=== PATIENT | male | born 1960 | race Caucasian/White ===

== ENCOUNTER 2019-03-02 17:46 | Inpatient (IN) | payer OTHER ==
[~2019-03-02] VITALS: Ht 167.6 cm; Wt 72.4 kg
[2019-03-02] MEDS ORDERED: ONDANSETRON 4 MG INJ IV STA (18:28)
[2019-03-02] MEDS ORDERED: morphine 4 MG/ML VIAL IV STA (18:28)
[2019-03-02] MEDS ORDERED: ASPIRIN 81 MG TAB PO ONE (18:30)
[2019-03-02] MEDS ORDERED: NITROGLYCERIN (SL) 0.4 MG TAB SL ONE (18:30)
--- NOTE | 2019-03-02 18:37 | ERD ---
ER Documentation Chief Complaint Chief Complaint CP w/ arm pain since last night, hx of WV. mild n/v, no SOB HPI This is a 59-year-old man with a history of CAD and WV status post PTCA with 5 stents and 5 balloon interventions presenting with pressure-like chest discomfort, nausea, mild shortness of breath since last night. Episodes have been intermittent and patient states they last between 30 minutes to 60 minutes. Patient denies loss of consciousness or dizziness, no fevers or chills, no cough, no calf or leg swelling. He did use aspirin and nitroglycerin prior to arrival ROS All systems reviewed and are negative except as per history of present illness. PMhx/Soc Hypertension, CAD status post [place] and PTCA x5 with 5 previous stents as well as previous balloon angioplasty FmHx Family History: No diabetes Physical Exam Vitals Vital Signs Date Temp Pulse Resp B/P (MAP) Pulse Ox O2 O2 Flow FiO2 Time Delivery Rate 03/02/19 97.0 91 16 227/133 99 17:48 (164) Physical Exam GENERAL: Well-developed, well-nourished, well-hydrated, in no apparent distress, looks nontoxic in appearance HEENT: Moist mucous membranes, pink conjunctiva, no cervical spine tenderness or step-off deformities, no goiter, no jaundice or icterus, extraocular movements intact without pain. No submandibular induration, and no pharyngeal erythema NEURO: Alert and oriented 3, cranial nerves II through XII intact bilaterally, pupils equal round reactive to light, no focal deficits or facial asymmetry, se nsation intact distally Strength 5/5 in upper and lower extremities bilaterally CARDIAC: Regular rate and rhythm, no murmurs rubs or gallops LUNGS: Clear bilaterally no wheezing crackles or stridor ABDOMEN: Soft nontender, no guarding, no rigidity, no rebound, no psoas sign no obturator sign. Normoactive bowel sounds SKIN: Warm and dry to touch, no abrasions, contusions, or hematomas, no lacerations, no ecchymosis, no target lesions, and without ulcers EXTREMITIES: No clubbing cyanosis or edema, calves are bilaterally symmetrical, no Homans sign, no popliteal cord sign. Distal pulses equal and bilateral PSYCH: Normal affect without agitation or irritability Result Diagram: 03/02/19185003/02/191850 Results 24 hrs Laboratory Tests Test 03/02/19 18:51 03/02/19 19:30 White Blood Count 5.4 10^3/ul Red Blood Count 4.65 10^6/ul Hemoglobin 14.0 g/dl Hematocrit 40.7 % Mean Corpuscular Volume 87.5 fl Mean Corpuscular Hemoglobin 30.1 pg Mean Corpuscular Hemoglobin Concent 34.4 g/dl Red Cell Distribution Width 12.5 % Platelet Count 236 10^3/UL Mean Platelet Volume 10.6 fl Immature Granulocytes % 0.200 % Neutrophils % 63.8 % Lymphocytes % 26.9 % Monocytes % 7.6 % Eosinophils % 0.6 % Basophils % 0.9 % Nucleated Red Blood Cells % 0.0 /100WBC Immature Granulocytes # 0.010 10^3/ul Neutrophils # 3.4 10^3/ul Lymphocytes # 1.4 10^3/ul Monocytes # 0.4 10^3/ul Eosinophils # 0.0 10^3/ul Basophils # 0.1 10^3/ul Nucleated Red Blood Cells # 0.0 10^3/ul Sodium Level 136 mmol/L Potassium Level 4.3 mmol/L Chloride Level 101 mmol/L Carbon Dioxide Level 24 mmol/L Anion Gap 11 Blood Urea Nitrogen 11 mg/dl Creatinine 0.57 mg/dl Est Glomerular Filtrat Rate mL/min > 60 mL/min Glucose Level 416 mg/dl Calcium Level 8.8 mg/dl Total Bilirubin 0.6 mg/dl Direct Bilirubin 0.00 mg/dl Indirect Bilirubin 0.6 mg/dl Aspartate Amino Transf (AST/SGOT) 18 IU/L Alanine Aminotransferase (ALT/SGPT) 23 IU/L Alkaline Phosphatase 117 IU/L Troponin I < 0.012 ng/ml Total Protein 7.7 g/dl Albumin 4.1 g/dl Globulin 3.60 g/dl Albumin/Globulin Ratio 1.13 Lipase 105 U/L Bedside Glucose 341 mg/dL Current Medications Medications Dose Sig/Silvio Start Time Status Last (Trade) Ordered Route PRN Stop Time Admin Dose Reason Admin Aspirin 162 mg ONCE ONCE 03/02/19 DC 03/02/19 (Aspirin) PO 18:30 03/02/19 19:02 18:31 2 tab ONCE ONCE 03/02/19 DC 03/02/19 Nitroglycerin SL 18:30 03/02/19 19:02 18:31 (Nitroglyceri n (Sl Tab) 0.4 Mg) Morphine 4 mg ONCE STAT 03/02/19 DC 03/02/19 Sulfate IV 18:28 03/02/19 19:02 (morphine) 18:30 Ondansetron 4 mg ONCE STAT 03/02/19 DC 03/02/19 HCl (Zofran IV 18:28 03/02/19 19:02 Inj) 18:30 Insulin 12 unit ONCE ONCE 03/02/19 DC 03/02/19 Human SC 19:30 03/02/19 19:37 Lispro 19:31 (Humalog) Diagnostic 1 ea 2 HRS AFTER 03/02/19 DC 03/02/19 Test (Pha) HUMALOG ONCE 19:30 03/02/19 19:30 (Accu-Chek) XX 19:31 Procedures/MDM IV line was established patient was placed on chronic manager rhythm strip revealed a sinus rhythm at about 70 bpm with upright P and T waves. Patient was afebrile EKG performed, read by me revealed a normal sinus rhythm at 68 bpm, normal axis, narrow QRS complex, inferolateral T wave inversions, no ST elevations or depressions noted Chest X-ray 1V Interpreted by me: Soft Tissue: No acute abnormalities Bones: No acute abnormalities Mediastinum/Cardiac Silhouette/Lungs: No acute abnormalities I administered aspirin 162 mg p.o. x1, nitroglycerin 0.4 mg sublingual x2, morphine 4 mg IV CBC was normal, electrolytes revealed hyperglycemia, liver function test normal, troponin negative. I administered lispro insulin 12 units subcutaneous injection x1 Patient's hypertension did improve with above therapy. Patient admitted to telemetry setting for continued medical management and cardiology consultation Departure Diagnosis: Primary Impression: Chest pain Chest pain type: chest pain due to myocardial ischemia Ischemic chest pain type: unstable angina pectoris Qualified Codes: I20.0 - Unstable angina Additional Impressions: Acute hyperglycemia Hypertensive emergency Condition: MIGUELITO Collins MD Mar 02, 2019 18:36
[2019-03-02] MEDS ORDERED: INSULIN LISPRO 100 UNIT/ML VIAL SC ONE (19:30)
[2019-03-02] MEDS ORDERED: ACCU-CHEK XX ONE (19:30)
[2019-03-02 22:25] VITALS: BP 126/85; PULSE 58; RESP 18
[2019-03-02 22:50] VITALS: Ht 167.6 cm; Wt 72.4 kg
--- NOTE | 2019-03-02 23:51 | HP ---
Date/Time of Note Date/Time of Note DATE: 03/02/19 TIME: 23:51 Assessment/Plan VTE Prophylaxis Pharmacological prophylaxis: LMWH Lines/Catheters IV Catheter Type (from Nrsg): Saline Lock Assessment/Plan Assessment/Plan 1. Chest pain: Rule out ACS -Patient with a history of cardiac stents x5 (last 2016). Patient with poor follow-up because of insurance reason. -EKG with T wave inversion. First troponin negative -Serial troponin -2D echo and cardiology consult -Supplemental oxygen, aspirin, statin. As needed nitro. No beta-fariha given heart rate on the lower side 2. Hypertensive urgency: BP better controlled. Adjust meds as needed -Patient has been going to [place] to get his medications and as a result has not been taking his medication regularly 3. Type 2 diabetes: Check A1c. ISS 4. History of dyslipidemia: Check fasting lipid panel in a.m. 5. History of scalp skin cancer: Status post removal 3 years ago 6. " Gastric valve problem" and associated obstruction: Currently no acute issue -Patient reported being hospitalized multiple times and being treated with NG tube decompression -Patient just got approved for medical and so he needs to follow-up closely with PCP Result Diagram: 03/02/19 1851 03/02/19 1851 Results 24hrs Laboratory Tests Test 03/02/19 18:51 03/02/19 19:30 03/02/19 21:45 White Blood Count 5.4 Red Blood Count 4.65 L Hemoglobin 14.0 Hematocrit 40.7 L Mean Corpuscular Volume 87.5 Mean Corpuscular Hemoglobin 30.1 Mean Corpuscular Hemoglobin Concent 34.4 Red Cell Distribution Width 12.5 Platelet Count 236 Mean Platelet Volume 10.6 H Immature Granulocytes % 0.200 Neutrophils % 63.8 Lymphocytes % 26.9 Monocytes % 7.6 Eosinophils % 0.6 Basophils % 0.9 Nucleated Red Blood Cells % 0.0 Immature Granulocytes # 0.010 Neutrophils # 3.4 Lymphocytes # 1.4 Monocytes # 0.4 Eosinophils # 0.0 Basophils # 0.1 Nucleated Red Blood Cells # 0.0 Sodium Level 136 Potassium Level 4.3 Chloride Level 101 Carbon Dioxide Level 24 Anion Gap 11 Blood Urea Nitrogen 11 Creatinine 0.57 L Est Glomerular Filtrat Rate mL/min > 60 Glucose Level 416 *H Calcium Level 8.8 Total Bilirubin 0.6 Direct Bilirubin 0.00 Indirect Bilirubin 0.6 Aspartate Amino Transf (AST/SGOT) 18 Alanine Aminotransferase (ALT/SGPT) 23 Alkaline Phosphatase 117 Troponin I < 0.012 Total Protein 7.7 Albumin 4.1 Globulin 3.60 H Albumin/Globulin Ratio 1.13 Lipase 105 Bedside Glucose 341 H 151 HPI/ROS Admit Date/Time Admit Date/Time Mar 02, 2019 at 19:44 Hx of Present Illness Patient is a 59-year-old male with a history of CAD status post stent x5, type 2 diabetes, dyslipidemia, " gastric valve problem" with recurrent obstruction, skin cancer of the scalp status post removal. Patient presented to ER complaining of chest pain. Chest pain is left-sided, described as squeezing type with radiation to his left arm. This particular chest pain initially started 2 months ago, worsening over the past 2 days. It is worse with exertion and associated with shortness of breath, nausea and diaphoresis. Patient had last cardiac stent in 2016. 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 He just got approved for medical. He has been going to [place] to get his medications and at times he had not been taking his medications when he runs out. He used to smoke 2 packs/day, but quit in 1994. When he presented to the ER, blood pressure was 227/133. First troponin is negative and EKG shows T wave inversion. Chest x-ray clear. PMH/Family/Social Past Medical History Medical History: other (See HPI) Coded Allergies: No Known Allergy (Unverified , 03/03/19) Past Surgical History Past Surgical Hx: other (See HPI) Family History Significant Family History: no pertinent family hx Social History Alcohol Use: none Smoking Status: Former smoker Drug Use: none Exam/Review of Systems Vital Signs Vitals Vital Signs Date Temp Pulse Resp B/P (MAP) Pulse Ox O2 O2 Flow FiO2 Time Delivery Rate 03/02/19 98.4 58 18 126/85 98 22:25 (99) 03/02/19 Room Air 21:21 CHRISTIANO OSEI MD Mar 02, 2019 23:51
[2019-03-03] VITALS (7 sets, daily range): BP systolic 131–170; BP diastolic 76–98; PULSE 50–61; RESP 16–20
[2019-03-03] MEDS ORDERED: NACL 0.9% 3 ML SYG IV SCH
[2019-03-03] MEDS ORDERED: ONDANSETRON 4 MG INJ IV PRN
[2019-03-03] MEDS ORDERED: ALBUTEROL/IPRATROPIUM (NEB) 3 ML AMP HHN PRN
[2019-03-03] MEDS ORDERED: NITROGLYCERIN (SL) 0.4 MG TAB SL PRN
[2019-03-03] MEDS ORDERED: GLUCOSE GEL 15 GRAM TUBE PO PRN ×2 (00:30)
[2019-03-03] MEDS ORDERED: GLUCAGON 1 MG INJ IM PRN (00:30)
[2019-03-03] MEDS ORDERED: DEXTROSE 50% 50 ML SYRINGE IV PRN ×2 (00:30)
[2019-03-03] MEDS ORDERED: GLUCOSE GEL 15 GRAM TUBE BUCCAL PRN (00:30)
[2019-03-03] MEDS: ACCU-CHEK XX SCH (02:24)
[2019-03-03] MEDS ORDERED: traMADol 50 MG TAB PO PRN (04:30)
[2019-03-03] MEDS: INSULIN ASPART [NOVOLOG] 3 ML PEN SC SCH ×4 (07:59→21:18)
[2019-03-03] MEDS: INSULIN GLARGINE [LANTus] (100 UNITS/ML) SYG SC SCH (08:00)
[2019-03-03] MEDS: ASPIRIN 81 MG TAB PO SCH (08:10)
[2019-03-03] MEDS: ENOXAPARIN 40 MG/0.4 ML SYG SC SCH (08:14)
--- NOTE | 2019-03-03 15:14 | RADRPT ---
Echocardiogram Report Patient Name: KOURTNEY BONDPatient ID: [id number] : 1960 (59y 1m)Study Date: 03/03/2019 8:45:23 AM Gender: Bijancession #: [id number] Tech: Guzman Gonzalez [facility] Location: [facility]- Ref.Physician: CHRISTIANO OSEI Height(Cm): BSA: Weight(Kg): Quality: AdequateOrder Physician: CHRISTIANO OSEI Account #: Procedures: Echocardiographic Report: Transthoracic echocardiogram with complete 2D, M-Mode, and doppler examination. Indications: Chest Pain. Measurements: 2D/M Mode Doppler Measurement Value Normal Range Measurement Value Normal Range LVIDd 2D 5.0 [ 4.2 - 5.8 ] cm AV Peak Enrrique 1.7 [ 100.0 - 170.0 ] cm/sec LVIDs 2D 3.8 [ 2.5 - 4.0 ] cm AV Peak PG 11.0 [ 2.0 - 9.0 ] mmHg LVPWd 2D 1.1 [ 0.6 - 1.0 ] cm LVOT Peak Enrrique 0.9 [ 70.0 - 110.0 ] cm/sec IVSd 2D 1.5 [ 0.6 - 1.0 ] cm LVOT Peak PG 3.0 [ 2.0 - 6.0 ] mmHg AoR Diam 2D 2.8 [ 2.6 - 3.4 ] cm MV E Peak Enrrique 0.7 [ 60.0 - 130.0 ] cm/sec EDV 2D 119.0 [ 62.0 - 150.0 ] ml MV A Peak Enrrique 0.7 [ 100.0 - 120.0 ] cm/sec ESV 2D 60.0 [ 21.0 - 61.0 ] ml MV E/A 1.0 [ 0.8 - 1.5 ] ratio EF 2D 49.6 [ 52.0 - 72.0 ] percent MV Decel Time 183 [ 104 - 258 ] msec LA Dimen 2D 3.8 [ 3.0 - 4.0 ] cm Lat E` Enrrique 0.1 [ 10.0 - 15.0 ] cm/sec Lateral E/E` 9.2 [ 1.0 - 2.0 ] ratio Med E` Enrrique 0.1 cm/sec MV E/A 1.0 [ 0.8 - 1.5 ] ratio TR Peak Enrrique 2.3 [ 100.0 - 280.0 ] cm/sec TR Peak PG 22.0 mmHg RVSP 25.0 [ 10.0 - 36.0 ] mmHg Findings: Left Ventricle: Normal left ventricular systolic function. Normal left ventricular cavity size. Moderate asymmetric septal hypertrophy. Ejection fraction is visually estimated at 55 %. Tissue Doppler/Mitral Doppler indices are consistent with impaired relaxation (Stage I diastolic dysfunction). Right Ventricle: Normal right ventricular size. Normal right ventricular systolic function. Left Atrium: The left atrium is normal in size. Right Atrium: The right atrium is normal in size. Mitral Valve: Mild mitral leaflet calcification. Mild mitral annular calcification. Trace mitral regurgitation. Aortic Valve: No significant aortic stenosis or insufficiency. Aortic cusps appear mildly calcified. Tricuspid Valve: Normal appearance of the tricuspid valve. The estimated Peak RVSP is 25 mmHg. There is trace tricuspid regurgitation. Pericardium: Normal pericardium with no significant pericardial effusion. Aorta: Normal aortic root. IVC: Normal size and normal respiratory collapse consistent with normal right atrial pressure. Conclusions: Normal left ventricular systolic function. Normal left ventricular cavity size. Moderate asymmetric septal hypertrophy. Ejection fraction is visually estimated at 55 %. Tissue Doppler/Mitral Doppler indices are consistent with impaired relaxation (Stage I diastolic dysfunction). Mild mitral leaflet calcification. Mild mitral annular calcification. Trace mitral regurgitation. Normal appearance of the tricuspid valve. The estimated Peak RVSP is 25 mmHg. There is trace tricuspid regurgitation. Electronically Signed By: Dilan Rodriguez 2019-03-03 15:13:21 PDT
--- NOTE | 2019-03-03 17:49 | CONS ---
DATE OF ADMISSION: 03/02/2019 DATE OF CONSULTATION: 03/03/2019 REASON FOR CONSULTATION: Chest pain, assess for acute coronary syndrome. REQUESTING PHYSICIAN: Dr. Ortiz from the hospitalist service. HISTORY OF PRESENT ILLNESS: Mr. Lake is a 59-year-old male with coronary artery disease, status p ost multiple prior stent placements, most recently 2016, with a total of 5 stents for patient's hyper tension, diabetes mellitus, dyslipidemia, remote tobacco, quit in 1994, who presented with substernal chest pain which has been recurrently ongoing for the last 2 months and for 3 days ago is his most r ecent episode and was continuous throughout the day. The patient states pain is worse with exertiona l activities, but describes the pain as a burning sensation. Upon arrival, temperature 97, blood pre ssure markedly elevated at 220/133, pulse 91, respiratory rate 16, satting 98%. The patient's labs r evealed a white count 5.4, hemoglobin 14.0, platelet count of 236, sodium of 136, potassium 4.3, crea tinine of 0.5, BUN 11, glucose of 416. Troponin negative. The patient's chest x-ray revealed no rad iographic evidence of acute cardiopulmonary abnormalities. The patient's electrocardiogram is not in chart for my review at this time. The patient had one in the ER, but is not in the chart. The cassie ent this time denies ongoing chest pain. PAST MEDICAL HISTORY: As above in HPI. MEDICATIONS CURRENTLY IN HOSPITAL: 1. Aspirin 81 mg daily. 2. Lovenox subQ daily. 3. Hydralazine 10 mg p.o. q. 8. 4. Meclizine p.r.n. 5. Zofran p.r.n. 6. DuoNeb p.r.n. ALLERGIES: NO KNOWN DRUG ALLERGIES. SOCIAL HISTORY: No current tobacco, social ETOH, no illicit drug use. Quit smoking in 1994. FAMILY HISTORY: No history of sudden cardiac or early CAD. REVIEW OF SYSTEMS: As above in HPI. CONSTITUTIONAL: No current fevers, chills. PULMONARY: No current shortness of breath. CARDIOVASCULAR: No chest pain. GASTROINTESTINAL: No vomiting. GENITOURINARY: No hematuria. MUSCULOSKELETAL: Degenerative joint disease. PSYCHIATRIC: No documented psych history. NEUROLOGIC: No documented history of CVA. ENDOCRINE: Diabetes mellitus. PHYSICAL EXAMINATION: VITAL SIGNS: Temperature 98.3, blood pressure 170/90, pulse 67, respiratory rate 18, satting 96%. GENERAL: The patient is alert, awake, complaining of intermittent chest pain. NECK: JVP approximately 8 to 9 cm of water. CHEST: Fair air movement throughout. HEART: Bradycardic, regular rhythm, normal S1, S2, I/ systolic murmur, nondisplaced PMI. ABDOMEN: Positive bowel sounds, soft. EXTREMITIES: No edema, 1+ pulses bilateral posterior tibial. LABORATORY DATA: Most recently from today, sodium 138, potassium 4.0, creatinine 0.6, BUN 12, glucos e of 234, LDL of 134, HDL 28. White blood count 8.4, hemoglobin 28, platelet count 220. IMAGING STUDIES: As above in HPI. No further imaging studies for my review at this time. ECG: As above in HPI. No further electrocardiograms for my review at this time. IMPRESSION: 1. Chest pain concerning for some angina, assess for acute coronary syndrome. 2. History of percutaneous transluminal coronary angioplasty and stent placement, most recently 2017 . 3. Hypertension, uncontrolled. 4. Dyslipidemia. 5. Diabetes mellitus. 6. Bradycardia, by tele with episodes of sinus bradycardia to the 39. RECOMMENDATIONS: 1. At this time, we would maintain the patient on telemetry monitoring to follow rhythm and rate con trol closely. 2. We would continue the patient's aspirin for prophylaxis against cardiovascular events and we will complete the patient to rule out for myocardial infarction to ensure the patient's chest pain was no t indicative of acute coronary syndrome such as acute myocardial infarction but will increase the pat ient's hydralazine to improve overall systolic blood pressure control and will start patient on oral nitrates for symptomatology and follow symptoms closely. 3. Check a 2D echo for this patient's ejection fraction, wall motion or any major valve abnormalitie s. 4. Follow the patient's blood sugars closely, adjust insulin therapy as necessary. 5. Check EKG now, repeat EKG in morning. EKG for any complaints of chest pain or change in rhythm, and if the patient does rule out for myocardial infarction. We will place the patient in for a cardi ac stress test to further assess possibility of significant obstructive coronary artery leading to sy mptoms of chest pain and subsequent admit to the hospital. Thank you for allowing me to take part in the care of this patient. I will continue to follow very c losely with you with recommendations to be made as the patient progresses through his inpatient hospi dejuan clinical course. Dictated By: MENG CHINCHILLA/LLIY Conf#: [id number] DID#: [id number] CC: CHAN ORTIZ; CHRISTIANO OSEI MD;*EndCC*
--- NOTE | 2019-03-03 19:35 | PN ---
Date/Time of Note Date/Time of Note DATE: 03/03/19 TIME: 19:26 Assessment/Plan VTE Prophylaxis Risk score (from Ns)>0 risk: 3 SCD applied (from Ns): Yes SCD contraindicated: low risk/ambulating Pharmacological prophylaxis: LMWH Lines/Catheters IV Catheter Type (from Nrs): Saline Lock Assessment/Plan Hospital Course Hospitalist coverage Assessment and plan 1. Chest pain rule out ACS. Stress test tomorrow. 2. Chronic cad/stents, 3. Nonadherence, restart medical therapy 4. Chronic hypertension 5. Chronic dyslipidemia not at goal 6. Type 2 diabetes A1c 9, not at goal 7. Past remote tobacco 8. Metabolic syndrome 9. Skin cancer 10. Recurrent bowel obstructions, follow-up with primary S: events noted.cp w min exercise. O: vss sr sb PE no pallor/ jvd reg s1s2; no mrg ctab nt bs + nt nd no r r g no edema/ Homans Result Diagram: 03/03/19 0508 03/03/19 0508 Results 24hrs Laboratory Tests Test 03/02/19 19:30 03/02/19 21:45 03/03/19 02:21 03/03/19 05:08 Bedside Glucose 341 H 151 197 White Blood Count 8.4 # Red Blood Count 4.51 L Hemoglobin 13.8 L Hematocrit 39.4 L Mean Corpuscular Volume 87.4 Mean Corpuscular 30.6 Hemoglobin Mean Corpuscular 35.0 Hemoglobin Concent Red Cell Distribution 12.7 Width Platelet Count 220 Mean Platelet Volume 11.0 H Immature Granulocytes % 0.400 Neutrophils % 72.5 Lymphocytes % 21.5 Monocytes % 4.7 Eosinophils % 0.4 Basophils % 0.5 Nucleated Red Blood 0.0 Cells % Immature Granulocytes # 0.030 Neutrophils # 6.1 Lymphocytes # 1.8 Monocytes # 0.4 Eosinophils # 0.0 Basophils # 0.0 Nucleated Red Blood 0.0 Cells # Sodium Level 138 Potassium Level 4.0 Chloride Level 100 Carbon Dioxide Level 27 Anion Gap 11 Blood Urea Nitrogen 12 Creatinine 0.60 L Est Glomerular Filtrat > 60 Rate mL/min Glucose Level 240 #H Hemoglobin A1c 10.0 H Calcium Level 9.1 Magnesium Level 1.8 Total Bilirubin 0.6 Direct Bilirubin 0.00 Indirect Bilirubin 0.6 Aspartate Amino 21 Transf (AST/SGOT) Alanine 24 Aminotransferase (ALT/SG PT) Alkaline Phosphatase 94 Total Protein 6.8 Albumin 3.6 Globulin 3.20 Albumin/Globulin Ratio 1.12 Triglycerides Level 221 H Cholesterol Level 206 H LDL Cholesterol, 134 Calculated HDL Cholesterol 28 L Cholesterol/HDL Ratio 7.3 Thyroid Stimulating 0.890 Hormone (TSH) Test 03/03/19 07:54 03/03/19 11:45 03/03/19 17:35 Bedside Glucose 233 H 234 H 158 Exam/Review of Systems Exam Vitals Vital Signs Date Temp Pulse Resp B/P (MAP) Pulse Ox O2 O2 Flow FiO2 Time Delivery Rate 03/03/19 98.0 58 16 166/93 99 15:35 (117) 03/02/19 Room Air 21:21 Intake and Output 03/02/19 03/02/19 03/03/19 1515:00 23:00 07:00 IntakeIntake Total 1000 ml BalanceBalance 1000 ml Results Results 24hrs Laboratory Tests Test 03/02/19 19:30 03/02/19 21:45 03/03/19 02:21 03/03/19 05:08 Bedside Glucose 341 H 151 197 White Blood Count 8.4 # Red Blood Count 4.51 L Hemoglobin 13.8 L Hematocrit 39.4 L Mean Corpuscular Volume 87.4 Mean Corpuscular 30.6 Hemoglobin Mean Corpuscular 35.0 Hemoglobin Concent Red Cell Distribution 12.7 Width Platelet Count 220 Mean Platelet Volume 11.0 H Immature Granulocytes % 0.400 Neutrophils % 72.5 Lymphocytes % 21.5 Monocytes % 4.7 Eosinophils % 0.4 Basophils % 0.5 Nucleated Red Blood 0.0 Cells % Immature Granulocytes # 0.030 Neutrophils # 6.1 Lymphocytes # 1.8 Monocytes # 0.4 Eosinophils # 0.0 Basophils # 0.0 Nucleated Red Blood 0.0 Cells # Sodium Level 138 Potassium Level 4.0 Chloride Level 100 Carbon Dioxide Level 27 Anion Gap 11 Blood Urea Nitrogen 12 Creatinine 0.60 L Est Glomerular Filtrat > 60 Rate mL/min Glucose Level 240 #H Hemoglobin A1c 10.0 H Calcium Level 9.1 Magnesium Level 1.8 Total Bilirubin 0.6 Direct Bilirubin 0.00 Indirect Bilirubin 0.6 Aspartate Amino 21 Transf (AST/SGOT) Alanine 24 Aminotransferase (ALT/SG PT) Alkaline Phosphatase 94 Total Protein 6.8 Albumin 3.6 Globulin 3.20 Albumin/Globulin Ratio 1.12 Triglycerides Level 221 H Cholesterol Level 206 H LDL Cholesterol, 134 Calculated HDL Cholesterol 28 L Cholesterol/HDL Ratio 7.3 Thyroid Stimulating 0.890 Hormone (TSH) Test 03/03/19 07:54 03/03/19 11:45 03/03/19 17:35 Bedside Glucose 233 H 234 H 158 Medications Medication Current Medications IV Flush (NS 3 ml) 3 ml PER PROTOCOL IV ; Start 03/03/19 at 00:00 Ondansetron HCl (Zofran Inj) 4 mg Q6H PRN IV NAUSEA/VOMITING; Start 03/03/19 at 00:00 Aspirin (Aspirin) 81 mg DAILY PO Last administered on 03/03/19at 08:10; Admin Dose 81 MG; Start 03/03/19 at 09:00 Nitroglycerin (Nitroglycerin (Sl Tab) 0.4 Mg) 1 tab Q5M PRN SL .CHEST PAIN; Start 03/03/19 at 00:00 Acetaminophen (Tylenol Tab) 650 mg Q6H PRN PO .PAIN 1-3 OR TEMP; Start 03/03/19 at 00:00 Enoxaparin Sodium (Lovenox) 40 mg DAILY SC Last administered on 03/03/19at 08:14; Admin Dose 40 MG; Start 03/03/19 at 09:00 Albuterol/ Ipratropium (Duoneb) 3 ml Q2H RESP THERAPY PRN HHN SHORTNESS OF BREATH; Start 03/03/19 at 00:00 Diagnostic Test (Pha) (Accu-Chek) 1 ea 02 XX Last administered on 03/03/19at 02:24; Admin Dose 1 EA; Start 03/03/19 at 02:00 Insulin Glargine (Lantus) 14 units DAILY@0800 SC Last administered on 03/03/19at 08:00; Admin Dose 14 UNITS; Start 03/03/19 at 08:00 Insulin Aspart (Novolog Insulin Pen) NOVOLOG *MODERATE* ALGORITHM WITH MEALS BEDTIME SC Last administered on 03/03/19at 17:44; Admin Dose 2 UNIT; Start 03/03/19 at 08:00 Miscellaneous Information 1 ea NOTE XX ; Start 03/03/19 at 00:30 Glucose (Glutose) 15 gm Q15M PRN PO DECREASED GLUCOSE; Start 03/03/19 at 00:30 Glucose (Glutose) 22.5 gm Q15M PRN PO DECREASED GLUCOSE; Start 03/03/19 at 00:30 Dextrose (D50w Syringe) 25 ml Q15M PRN IV DECREASED GLUCOSE; Start 03/03/19 at 00:30 Dextrose (D50w Syringe) 50 ml Q15M PRN IV DECREASED GLUCOSE; Start 03/03/19 at 00:30 Glucagon (Glucagen) 1 mg Q15M PRN IM DECREASED GLUCOSE; Start 03/03/19 at 00:30 Glucose (Glutose) 15 gm Q15M PRN BUCCAL DECREASED GLUCOSE; Start 03/03/19 at 0 0:30 Tramadol HCl (Ultram) 50 mg Q6H PRN PO MODERATE PAIN LEVEL 4-6 Last administered on 03/03/19at 04:18; Admin Dose 50 MG; Start 03/03/19 at 04:30; Stop 03/04/19 at 04:29 Hydralazine HCl (Apresoline) 25 mg Q8 PO Last administered on 03/03/19at 14:27; Admin Dose 25 MG; Start 03/03/19 at 14:00 Isosorbide Dinitrate (Isordil) 20 mg TID PO ; Start 03/03/19 at 21:00 DARNELL MOREL MD Mar 03, 2019 19:35
[2019-03-03] MEDS: ISOSORBIDE DINITRATE 20 MG TAB PO SCH (21:13)
[2019-03-04] VITALS (10 sets, daily range): BP systolic 109–150; BP diastolic 70–89; PULSE 43–69; RESP 16–20
[2019-03-04] MEDS: ACCU-CHEK XX SCH (02:05)
[2019-03-04] MEDS: ASPIRIN 81 MG TAB PO SCH (07:48)
[2019-03-04] MEDS: ISOSORBIDE DINITRATE 20 MG TAB PO SCH ×3 (07:49→21:07)
[2019-03-04] MEDS: ACETAMINOPHEN 325 MG TAB PO PRN (07:49)
[2019-03-04] MEDS: ENOXAPARIN 40 MG/0.4 ML SYG SC SCH (08:08)
[2019-03-04] MEDS: INSULIN GLARGINE [LANTus] (100 UNITS/ML) SYG SC SCH (08:14)
[2019-03-04] MEDS: INSULIN ASPART [NOVOLOG] 3 ML PEN SC SCH ×4 (08:22→21:12)
--- NOTE | 2019-03-04 13:16 | PDOCDIS ---
Discharge Instructions CONDITION [id number] Patient Condition: [id number] Stable HOME CARE INSTRUCTIONS: [id number] Diet Instructions: [id number] Low Fat /Cholesterol ACTIVITY: [id number] Activity Restrictions: [id number] Slowly Increase Activity Avoid heavy lifting FOLLOW UP/APPOINTMENTS Follow-up Plan appt primary 1wk Dr Rodriguez 2wks DARNELL MOREL MD Mar 04, 2019 13:16
[2019-03-04] MEDS ORDERED: NITR0.4T32 SL (13:22)
[2019-03-04] MEDS ORDERED: ACET325T33 PO (13:22)
[2019-03-04] MEDS ORDERED: Insulin Glargine SC (13:22)
[2019-03-04] MEDS ORDERED: NOVO3I SC (13:22)
[2019-03-04] MEDS ORDERED: ISOS20TA19 PO (13:22)
[2019-03-04] MEDS ORDERED: ASPI-831 PO (13:22)
[2019-03-04] MEDS ORDERED: ATOR20TA38 PO (13:22)
[2019-03-04] MEDS ORDERED: HYDR-3671 PO (13:22)
[2019-03-04] MEDS ORDERED: REGADENOSON 0.4 MG/5 ML SYG ONE (13:26)
--- NOTE | 2019-03-04 14:33 | DS ---
Date/Time of Note Date/Time of Note DATE: 03/04/19 TIME: 14:31 Discharge Summary Admission/Discharge Info Admit Date/Time Mar 02, 2019 at 19:44 Discharge Date/Time Patient Condition: Stable Consults Jennifer/ [facility] Procedures CXR IMPRESSION: No radiographic evidence of an acute cardiopulmonary process. Exercise stress test Hx of Present Illness Admitted with chest pain. Nonadherence to medical therapy Hospital Course Hospitalist coverageHospital course -Evaluated/ managed for chest pain. Patient unfortunately has not been regular with medical therapy. Seen by cardiology. Trop's and cxr are negative. Patient for stress test later today. If negative, patient may be discharged home to follow-up with primary and cardiology. Medications refilled. Assessment and plan 1. Chest pain ruled out ACS. Stress test day, and if normal DC home. 2. Chronic cad/stents, 3. Nonadherence, restart medical therapy 4. Chronic hypertension 5. Chronic dyslipidemia not at goal 6. Type 2 diabetes A1c 9, not at goal 7. Past remote tobacco 8. Metabolic syndrome 9. Skin cancer 10. Recurrent bowel obstructions, follow-up with primary Home Meds Active Scripts Atorvastatin Calcium* (Atorvastatin Calcium*) 20 Mg Tablet, 20 MG PO QHS, #30 TAB Prov:DARNELL MOREL MD 03/04/19 Insulin Aspart* (Novolog Insulin Pen*) 100 Unit/Ml Soln, 0 UNIT SC WITH MEALS BEDTIME for 10 Days, #10 Insulin for sliding scale coverage. Dispense 1 week supply & 1 refill. Prov:DARNELL MOREL MD 03/04/19 [Insulin Glargine] 100 UNITS/ML SOLN No Conflict Check, 14 UNITS SC DAILY@0800 for 10 Days, #10 dispense 1 week supply and 1 refill. may dispense Solostar syringes; lancets as needed. Prov:DARNELL MOREL MD 03/04/19 Aspirin (Aspirin) 81 Mg Chew, 81 MG PO DAILY for 30 Days, #30 TAB 1 Refill otc Prov:DARNELL MOREL MD 03/04/19 Acetaminophen* (Tylenol*) 325 Mg Tablet, 650 MG PO Q6H PRN for .PAIN 1-3 OR TEMP for 1 Day, TAB Prov:DARNELL MOREL MD 03/04/19 Nitroglycerin* (Nitroglycerin* SL) 0.4 Mg Tab.subl, 1 TAB SL Q5M PRN for .CHEST PAIN for 1 Day, #10 Prov:DARNELL MOREL MD 03/04/19 Isosorbide Dinitrate* (Isosorbide Dinitrate*) 20 Mg Tablet, 20 MG PO TID for 10 Days, #30 TAB 1 Refill Prov:DARNELL MOREL MD 03/04/19 Hydralazine Hcl* (Hydralazine Hcl*) 25 Mg Tab, 25 MG PO Q8 for 10 Days, #30 TAB 1 Refill Prov:DARNELL MOREL MD 03/04/19 Follow-up Plan appt primary 1wk Dr Rodriguez 2wks Primary Care Provider Not On Staff Doctor Time spent on discharge: > 30 minutes Pending Labs Laboratory Tests Test 03/03/19 17:35 03/03/19 18:52 03/03/19 20:56 03/04/19 00:34 Bedside 158 220 Glucose mg/dL (70-220) mg/dL (70-220) Troponin I < 0.012 < 0.012 ng/ml (0.000-0 ng/ml (0.000-0 .120) .120) Test 03/04/19 02:04 03/04/19 08:06 03/04/19 11:34 Bedside 218 202 195 Glucose mg/dL (70-220) mg/dL (70-220) mg/dL (70-220) DARNELL MOREL MD Mar 04, 2019 14:33
--- NOTE | 2019-03-04 15:13 | CONS ---
Consult Date/Type/Reason Admit Date/Time Mar 02, 2019 at 19:44 Initial Consult Date Date/Time of Note DATE: 03/04/19 TIME: 15:07 Subjective NO acute events - pt completed Stress test - will have results soon. ROS: No fever, no chills, no nausea, no vomiting, no diarrhea/constipation No recent weight changes No chest pain, no PND, no orthopnea No dizziness, blurred vision No thirst, no heat or cold intolerance Objective Vitals Vital Signs Date Temp Pulse Resp B/P (MAP) Pulse Ox O2 O2 Flow FiO2 Time Delivery Rate 03/04/19 64 112/74 13:31 (87) 03/04/19 97.8 16 99 Room Air 11:33 Intake and Output 03/03/19 03/03/19 03/04/19 1515:00 23:00 07:00 IntakeIntake Total 360 ml 440 ml OutputOutput Total 650 ml BalanceBalance 360 ml -210 ml Exam General: WN/WD/NAD, AOx 3 HEENT: Unicetric/atraumatic/EOMI ( follows commands) NECK: JVD elevated, no thyromegaly Lymph: no lymphadenopathy HEART: regular with no S3, II/ systolic murmur at apex LUNGS: Coarse sounds ABD: soft, NT, ND, +BS : Intact Neuro: non focal SKIN: chronic changes EXT: trace edema Results/Medications Result Diagram: 03/03/19 0508 03/03/19 0508 Results 24 hrs Laboratory Tests Test 03/03/19 17:35 03/03/19 18:52 03/03/19 20:56 03/04/19 00:34 Bedside Glucose 158 220 Troponin I < 0.012 < 0.012 Test 03/04/19 02:04 03/04/19 08:06 03/04/19 11:34 Bedside Glucose 218 202 195 Home Meds Active Scripts Atorvastatin Calcium* (Atorvastatin Calcium*) 20 Mg Tablet, 20 MG PO QHS, #30 TAB Prov:DARNELL MOREL MD 03/04/19 Insulin Aspart* (Novolog Insulin Pen*) 100 Unit/Ml Soln, 0 UNIT SC WITH MEALS BEDTIME for 10 Days, #10 Insulin for sliding scale coverage. Dispense 1 week supply & 1 refill. Prov:DARNELL MOREL MD 03/04/19 [Insulin Glargine] 100 UNITS/ML SOLN No Conflict Check, 14 UNITS SC DAILY@0800 for 10 Days, #10 dispense 1 week supply and 1 refill. may dispense Solostar syringes; lancets as needed. Prov:DARNELL MOREL MD 03/04/19 Aspirin (Aspirin) 81 Mg Chew, 81 MG PO DAILY for 30 Days, #30 TAB 1 Refill otc Prov:DARNELL MOREL MD 03/04/19 Acetaminophen* (Tylenol*) 325 Mg Tablet, 650 MG PO Q6H PRN for .PAIN 1-3 OR TEMP for 1 Day, TAB Prov:DARNELL MOREL MD 03/04/19 Nitroglycerin* (Nitroglycerin* SL) 0.4 Mg Tab.subl, 1 TAB SL Q5M PRN for .CHEST PAIN for 1 Day, #10 Prov:DARNELL MOREL MD 03/04/19 Isosorbide Dinitrate* (Isosorbide Dinitrate*) 20 Mg Tablet, 20 MG PO TID for 10 Days, #30 TAB 1 Refill Prov:DARNELL MOREL MD 03/04/19 Hydralazine Hcl* (Hydralazine Hcl*) 25 Mg Tab, 25 MG PO Q8 for 10 Days, #30 TAB 1 Refill Prov:DARNELL MOREL MD 03/04/19 Medications Current Medications IV Flush (NS 3 ml) 3 ml PER PROTOCOL IV ; Start 03/03/19 at 00:00 Ondansetron HCl (Zofran Inj) 4 mg Q6H PRN IV NAUSEA/VOMITING; Start 03/03/19 at 00:00 Aspirin (Aspirin) 81 mg DAILY PO Last administered on 03/04/19at 07:48; Admin Dose 81 MG; Start 03/03/19 at 09:00 Nitroglycerin (Nitroglycerin (Sl Tab) 0.4 Mg) 1 tab Q5M PRN SL .CHEST PAIN; Start 03/03/19 at 00:00 Acetaminophen (Tylenol Tab) 650 mg Q6H PRN PO .PAIN 1-3 OR TEMP Last administered on 03/04/19at 07:49; Admin Dose 650 MG; Start 03/03/19 at 00:00 Enoxaparin Sodium (Lovenox) 40 mg DAILY SC Last administered on 03/04/19at 08:08; Admin Dose 40 MG; Start 03/03/19 at 09:00 Albuterol/ Ipratropium (Duoneb) 3 ml Q2H RESP THERAPY PRN HHN SHORTNESS OF BREATH; Start 03/03/19 at 00:00 Diagnostic Test (Pha) (Accu-Chek) 1 ea 02 XX Last administered on 03/04/19at 02:05; Admin Dose 1 EA; Start 03/03/19 at 02:00 Insulin Glargine (Lantus) 14 units DAILY@0800 SC Last administered on 03/04/19at 08:14; Admin Dose 14 UNITS; Start 03/03/19 at 08:00 Insulin Aspart (Novolog Insulin Pen) NOVOLOG *MODERATE* ALGORITHM WITH MEALS BEDTIME SC Last administered on 03/04/19at 11:45; Admin Dose 4 UNIT; Start 03/03/19 at 08:00 Miscellaneous Information 1 ea NOTE XX ; Start 03/03/19 at 00:30 Glucose (Glutose) 15 gm Q15M PRN PO DECREASED GLUCOSE; Start 03/03/19 at 00:30 Glucose (Glutose) 22.5 gm Q15M PRN PO DECREASED GLUCOSE; Start 03/03/19 at 00:30 Dextrose (D50w Syringe) 25 ml Q15M PRN IV DECREASED GLUCOSE; Start 03/03/19 at 00:30 Dextrose (D50w Syringe) 50 ml Q15M PRN IV DECREASED GLUCOSE; Start 03/03/19 at 00:30 Glucagon (Glucagen) 1 mg Q15M PRN IM DECREASED GLUCOSE; Start 03/03/19 at 00:30 Glucose (Glutose) 15 gm Q15M PRN BUCCAL DECREASED GLUCOSE; Start 03/03/19 at 00:30 Hydralazine HCl (Apresoline) 25 mg Q8 PO Last administered on 03/04/19at 13:30; Admin Dose 25 MG; Start 03/03/19 at 14:00 Isosorbide Dinitrate (Isordil) 20 mg TID PO Last administered on 03/04/19at 13:30; Admin Dose 20 MG; Start 03/03/19 at 21:00 Atorvastatin Calcium (Lipitor) 20 mg HS PO ; Start 03/04/19 at 21:00 Assessment/Plan Hospital Course (Demo Recall) 1. Chest pain concerning for some angina, assess for acute coronary syndrome - completed stress test now - will have results shortly. 2. History of percutaneous transluminal coronary angioplasty and stent placement, most recently 2017 - await Stress test. 3. Hypertension, uncontrolled - BP in good range now. 4. Dyslipidemia. 5. Diabetes mellitus- on meds - keep euglycemic. 6. Bradycardia, by tele with episodes of sinus bradycardia to the 390 HR stable now. RAGINI ARREDONDO MD Mar 04, 2019 15:13
--- NOTE | 2019-03-04 16:24 | CARRPT ---
DATE OF PROCEDURE: REFERRING PHYSICIAN: Dilan Rodriguez MD REASON FOR EVALUATION: Precordial chest pain. DESCRIPTION OF PROCEDURE: The patient was brought into heart station in fasting state. Blood pressu re was 155/65. He had a successful Lexiscan injection, which he tolerated the procedure well. There was no ischemia. Imaging portion is dictated separately. Dictated By: RAGINI ARREDONDO MD ML/NTS Conf#: [id number] DID#: [id number] CC: DARNELL MOREL MD; CHRISTIANO OSEI MD;*End*
[2019-03-04] MEDS ORDERED: ATORVASTATIN 20 MG TAB PO SCH (21:00)
[2019-03-05] VITALS: BP 129/84; PULSE 77; RESP 18
[2019-03-05] MEDS: ACCU-CHEK XX SCH (01:58)
[2019-03-05] MEDS: ACETAMINOPHEN 325 MG TAB PO PRN (02:44)
[2019-03-05 04:35] VITALS: BP 155/91; PULSE 52; RESP 18
[2019-03-05 07:23] VITALS: BP 165/96; PULSE 72
[2019-03-05] MEDS: ASPIRIN 81 MG TAB PO SCH (08:03)
[2019-03-05] MEDS: ISOSORBIDE DINITRATE 20 MG TAB PO SCH (08:03)
[2019-03-05] MEDS: INSULIN ASPART [NOVOLOG] 3 ML PEN SC SCH (08:11)
[2019-03-05] MEDS: INSULIN GLARGINE [LANTus] (100 UNITS/ML) SYG SC SCH (08:11)
[2019-03-05] MEDS: ENOXAPARIN 40 MG/0.4 ML SYG SC SCH (08:11)
--- NOTE | 2019-03-05 10:05 | CONS ---
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 Rodriguez next week for outpt LHC - pt agreed - will add BP rx now. ROS: No fever, no chills, no nausea, no vomiting, no diarrhea/constipation No recent weight changes No chest pain, no PND, no orthopnea No dizziness, blurred vision No thirst, no heat or cold intolerance Objective Vitals Vital Signs Date Temp Pulse Resp B/P (MAP) Pulse Ox O2 O2 Flow FiO2 Time Delivery Rate 03/05/19 97.8 72 165/96 100 Room Air 07:23 (119) 03/05/19 18 04:35 Intake and Output 03/04/19 03/04/19 03/05/19 1414:59 22:59 06:59 IntakeIntake Total 800 ml 800 ml BalanceBalance 800 ml 800 ml Exam General: WN/WD/NAD, AOx 3 HEENT: Unicetric/atraumatic/EOMI (follow commands) NECK: JVD elevated, no thyromegaly Lymph: no lymphadenopathy HEART: regular with no S3, II/ systolic murmur at apex LUNGS: Coarse sounds ABD: soft, NT, ND, +BS : Intact Neuro: non focal SKIN: chronic changes EXT: trace edema Results/Medications Result Diagram: 03/03/19 0508 03/03/19 0508 Results 24 hrs Laboratory Tests Test 03/04/19 11:34 03/04/19 17:13 03/04/19 20:58 03/05/19 01:54 Bedside Glucose 195 228 H 238 H 216 Test 03/05/19 07:47 Bedside Glucose 227 H Home Meds Active Scripts Atorvastatin Calcium* (Atorvastatin Calcium*) 20 Mg Tablet, 20 MG PO QHS, #30 TAB Prov:DARNELL MOREL MD 03/04/19 Insulin Aspart* (Novolog Insulin Pen*) 100 Unit/Ml Soln, 0 UNIT SC WITH MEALS BEDTIME for 10 Days, #10 Insulin for sliding scale coverage. Dispense 1 week supply & 1 refill. Prov:DARNELL MOREL MD 03/04/19 [Insulin Glargine] 100 UNITS/ML SOLN No Conflict Check, 14 UNITS SC DAILY@0800 for 10 Days, #10 dispense 1 week supply and 1 refill. may dispense Solostar syringes; lancets as needed. Prov:DARNELL MOREL MD 03/04/19 Aspirin (Aspirin) 81 Mg Chew, 81 MG PO DAILY for 30 Days, #30 TAB 1 Refill otc Prov:DARNELL MOREL MD 03/04/19 Acetaminophen* (Tylenol*) 325 Mg Tablet, 650 MG PO Q6H PRN for .PAIN 1-3 OR TEMP for 1 Day, TAB Prov:DARNELL MOREL MD 03/04/19 Nitroglycerin* (Nitroglycerin* SL) 0.4 Mg Tab.subl, 1 TAB SL Q5M PRN for .CHEST PAIN for 1 Day, #10 Prov:DARNELL MOREL MD 03/04/19 Isosorbide Dinitrate* (Isosorbide Dinitrate*) 20 Mg Tablet, 20 MG PO TID for 10 Days, #30 TAB 1 Refill Prov:DARNELL MOREL MD 03/04/19 Hydralazine Hcl* (Hydralazine Hcl*) 25 Mg Tab, 25 MG PO Q8 for 10 Days, #30 TAB 1 Refill Prov:DARNELL MOREL MD 03/04/19 Medications Current Medications IV Flush (NS 3 ml) 3 ml PER PROTOCOL IV ; Start 03/03/19 at 00:00 Ondansetron HCl (Zofran Inj) 4 mg Q6H PRN IV NAUSEA/VOMITING; Start 03/03/19 at 00:00 Aspirin (Aspirin) 81 mg DAILY PO Last administered on 03/05/19at 08:03; Admin Dose 81 MG; Start 03/03/19 at 09:00 Nitroglycerin (Nitroglycerin (Sl Tab) 0.4 Mg) 1 tab Q5M PRN SL .CHEST PAIN; Start 03/03/19 at 00:00 Acetaminophen (Tylenol Tab) 650 mg Q6H PRN PO .PAIN 1-3 OR TEMP Last administered on 03/05/19 02:44; Admin Dose 650 MG; Start 03/03/19 at 00:00 Enoxaparin Sodium (Lovenox) 40 mg DAILY SC Last administered on 03/05/19 08:11; Admin Dose 40 MG; Start 03/03/19 at 09:00 Albuterol/ Ipratropium (Duoneb) 3 ml Q2H RESP THERAPY PRN HHN SHORTNESS OF BREATH; Start 03/03/19 at 00:00 Diagnostic Test (Pha) (Accu-Chek) 1 ea 02 XX Last administered on 03/05/19 01:58; Admin Dose 1 EA; Start 03/03/19 at 02:00 Insulin Glargine (Lantus) 14 units DAILY@0800 SC Last administered on 03/05/19 08:11; Admin Dose 14 UNITS; Start 03/03/19 at 08:00 Insulin Aspart (Novolog Insulin Pen) NOVOLOG *MODERATE* ALGORITHM WITH MEALS BEDTIME SC Last administered on 03/05/19 08:11; Admin Dose 6 UNIT; Start 03/03/19 at 08:00 Miscellaneous Information 1 ea NOTE XX ; Start 03/03/19 at 00:30 Glucose (Glutose) 15 gm Q15M PRN PO DECREASED GLUCOSE; Start 03/03/19 at 00:30 Glucose (Glutose) 22.5 gm Q15M PRN PO DECREASED GLUCOSE; Start 03/03/19 at 00:30 Dextrose (D50w Syringe) 25 ml Q15M PRN IV DECREASED GLUCOSE; Start 03/03/19 at 00:30 Dextrose (D50w Syringe) 50 ml Q15M PRN IV DECREASED GLUCOSE; Start 03/03/19 at 00:30 Glucagon (Glucagen) 1 mg Q15M PRN IM DECREASED GLUCOSE; Start 03/03/19 at 00:30 Glucose (Glutose) 15 gm Q15M PRN BUCCAL DECREASED GLUCOSE; Start 03/03/19 at 00:30 Hydralazine HCl (Apresoline) 25 mg Q8 PO Last administered on 03/05/19at 05:14; Admin Dose 25 MG; Start 03/03/19 at 14:00 Isosorbide Dinitrate (Isordil) 20 mg TID PO Last administered on 03/05/19 08:03; Admin Dose 20 MG; Start 03/03/19 at 21:00 Atorvastatin Calcium (Lipitor) 20 mg HS PO Last administered on 03/04/19at 20:59; Admin Dose 20 MG; Start 03/04/19 at 21:00 Assessment/Plan Hospital Course (Demo Recall) 1. 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 Rodriguez next week for outpt LHC - pt agreed - will add BP rx now. 2. History of percutaneous transluminal coronary angioplasty and stent placement, most recently 2017 - await Stress test. 3. Hypertension, uncontrolled - BP high now, will re-check and add Rx as needed 4. Dyslipidemia. 5. Diabetes mellitus- on meds - keep euglycemic. 6. Bradycardia, by tele with episodes of sinus bradycardia to the 39 HR stable now. RAGINI ARREDONDO MD Mar 05, 2019 10:05
[2019-03-05 10:20] VITALS: BP 139/79; PULSE 78
[2019-03-05] MEDS ORDERED: LISINOPRIL 20 MG TAB PO SCH (10:30)
== END 2019-03-05 11:16 | disposition home or self-care (01) | DRG 313 ==
LOC: E/R 17:46 → 6WM 19:44
PROVIDERS: ADMIT Internal Medicine; ATTEND Internal Medicine
DX: R07.2 Precordial pain (principal); Z91.19 Patient's noncompliance with other medical treatment and regimen; Z95.5 Presence of coronary angioplasty implant and graft; I10 Essential (primary) hypertension; E78.5 Hyperlipidemia, unspecified; E11.9 Type 2 diabetes mellitus without complications; Z87.891 Personal history of nicotine dependence; E88.81 Metabolic syndrome and other insulin resistance; I16.0 Hypertensive urgency; R00.1 Bradycardia, unspecified
CPT/HCPCS: 71045; 78452; 80053; 80061; 82962; 83036; 83690; 83735; 84443; 84484; 85025; 93005; 93017; 93306; 96372; 96374; 96375; A9500; A9505; J1650; J1815; J2270; J2405; J2785